=== PATIENT | male | born 1985 | race Caucasian/White ===

== ENCOUNTER 2020-08-09 11:25 | Outpatient (CLI) | payer MEDICAID ==
[2020-08-09 14:30] LABS: CHOLESTEROL 205 mg/dL; HDL CHOLESTEROL 69 mg/dL; LDL CHOLESTEROL,CALCULATED 126 mg/dL; LDL/HDL RATIO 1.8 (<3.6); TRIGLYCERIDES 52 mg/dL; VLDL CHOLESTEROL 10 mg/dL
== END 2020-08-09 11:26 | disposition home or self-care (01) ==
LOC: LAB.S 11:25
PROVIDERS: ATTEND Physician Assistant
DX: R07.89 Other chest pain (principal); Z82.49 Family history of ischemic heart disease and other diseases of the circulatory system; Z83.438 Family history of other disorder of lipoprotein metabolism and other lipidemia
CPT/HCPCS: 36415; 80061; 83721

== ENCOUNTER 2022-10-09 12:56 | Emergency (ER) | payer MEDICAID ==
[2022-10-09 13:10] VITALS: BP 136/72
--- NOTE | 2022-10-09 14:14 | XRAY Report ---
PROCEDURE: Finger(s) LT INDICATIONS: finger injury w/ pain/swelling TECHNIQUE: AP hand, 2 views of the fourth finger(s) acquired. COMPARISON: None. FINDINGS: Bones: No fractures or dislocations. Expansile lucency is identified at the base of the fourth middl e phalanx measuring 6 x 6 mm. Demonstrates geographic margins. No internal calcifications. There is n o cortical fracture. This area was not included in the field of view on 2013 exam. Soft tissues: No suspicious soft tissue calcifications or masses. IMPRESSION: No visualized acute fracture or dislocation. However, occult injury cannot be excluded. Recommend rosario rt interval imaging follow-up in 7-10 days as clinically indicated for additional evaluation. Expansile mass at the base of the fourth middle phalanx. While this could represent a bone cyst, othe r etiologies cannot be excluded. MRI is recommended for further evaluation. Reviewed by: Annie Orlando MD on 10/09/2022 2:12 PM PDT Approved by: Annie Orlando MD on 10/09/2022 2:12 PM PDT Station ID: [id number]
--- NOTE | 2022-10-09 14:40 | ED Physician Documentation ---
PD HPI UPPER EXT INJURY - Stated complaint Stated Complaint: LT HAND INJ - Chief complaint Chief Complaint: Trauma Ext - History obtained from History obtained from: Patient - Additonal information Additional information: 36-year-old male presents with a left ring finger injury. He is not entirely sure what happened as it happened quickly but he believes his finger got caught in a anchor chain and was yanked or twisted. This occurred Yesterday.. He has had some swelling in decreased range of motion in the finger since then. No erythema, no skin lacerations. [place], does not have access to ice and has not been able to do try any other treatment yet Such as Tylenol or ibuprofen. He denies any other injuries. PD PAST MEDICAL HISTORY - Past Medical History Past Medical History: No - Present Medications Home Medications: Ambulatory Orders Medication Instructions Recorded Confirmed No Known Home Medications 10/09/22 10/09/22 - Allergies Allergies/Adverse Reactions: Allergies Allergy/AdvReac Type Severity Reaction Status Date / Time amoxicillin Allergy Unknown Verified 10/09/22 13:03 PD ED PE NORMAL - Vitals Vital signs reviewed: Yes - General General: Alert and oriented X 3, No acute distress, Well developed/nourished - HEENT HEENT: Atraumatic, Pharynx benign - Derm Derm: Normal color, Warm and dry - Extremities Extremities: Other (There is mild swelling of the left ring finger, no erythema, skin is intact. He can flex about 30% and extend completely. Sensation is intact.) - Neuro Neuro: Alert and oriented X 3 Eye Opening: Spontaneous Motor: Obeys Commands Verbal: Oriented GCS Score: 15 - Psych Psych: Normal mood, Normal affect Results - Vitals Vitals: Vital Signs - 24 hr 10/09/22 13:03 Temperature 36.7 C Heart Rate 90 Respiratory 16 Rate Blood Pressure 136/72 H O2 Saturation 99 Oxygen O2 Source Room air - Rads (name of study) No standard instances Relevant Findings:: Final report received PD Medical Decision Making - ED course Complexity details: reviewed results, considered differential, d/w patient ED course: 36-year-old male presented after getting his left ring finger caught in a anchor chain. It sounds as though the finger may have been yanked in the chain and he presents now with discomfort and swelling in the left ring finger. There is no skin injury, no laceration or abrasions. He has partial flexion full extension of the finger there is mild localized swelling. We did obtain x-ray which shows no fracture or dislocation and I discussed with patient that this is likely a sprain and should be tribute treated supportively which I reviewed with patient, including NSAIDs, cool compress, and immobilization if desired. On x-ray there was a area at the base of that same finger that was concerning for a possible bone cyst or other etiology. It was not present on a x-ray several years ago. I reviewed these findings with patient, he had no symptoms in this hand prior to the injury and I suspect this is a bone cyst but I advised that he should have a nonemergent MRI on outpatient basis. He does not currently have a primary care provider so I have listed 1 for him in the discharge paperwork and recommended that he follow-up with them in the next month or so and it an outpatient MRI can be arranged.I discussed return precautions if any new or worsening symptoms. Departure - Departure Disposition: 01 Home, Self Care Condition: Good Instructions: ED Sprain Finger Follow-Up: Jenna Jackson ARNP [Provider Admit Priv/Credential] - Comments: As we discussed, The x-ray did not show any broken bones or dislocations. At there was an area at the base of your ring finger that may be a cyst but should be followed up with an MRI in a nonemergent basis. Sometime in the next month or so, please establish primary care and they can order an outpatient MRI. You did likely sprained your finger today and I recommend ibuprofen and Tylenol as needed for pain, cool compress and if it is bothersome you can mattie tape it to the next finger or try to limit your range of motion for the next several days until the inflammation goes down and symptoms improved. Because you do not currently have a primary care provider, I have listed a nurse practitioner on this discharge paperwork. You can call them for ER follow-up.
== END 2022-10-09 14:43 | disposition home or self-care (01) ==
LOC: ED 12:56
DX: S63.615A Unspecified sprain of left ring finger, initial encounter (principal); R22.32 Localized swelling, mass and lump, left upper limb; W23.0XXA Caught, crushed, jammed, or pinched between moving objects, initial encounter
CPT/HCPCS: 99283